=== PATIENT | male | born 2000 | race Caucasian/White ===

== ENCOUNTER 2021-02-17 03:49 | Emergency (ER) | payer OTHER ==
[~2021-02-17] VITALS: Ht 180.3 cm; Wt 86.4 kg
[2021-02-17 04:05] VITALS: PULSE 88; TEMP 97.2
[2021-02-17] MEDS ORDERED: AMOXICILLIN 8751 TAB PO (04:58)
== END 2021-02-17 05:11 | disposition home or self-care (01) ==
LOC: COL.ER 03:49
DX: L03.012 Cellulitis of left finger (principal)